=== PATIENT | female | born 1985 | race Caucasian/White ===

== ENCOUNTER 2023-04-13 22:42 | Emergency (ER) | payer OTHER, SELFPAY ==
[2023-04-13 22:42] VITALS: BP 147/102; PULSE 102; RESP 18; TEMP 36; O2SAT 100
--- NOTE | 2023-04-13 23:03 | ED.DENTAL ---
HPI - Dental/Oral General Chief complaint: Dental/Oral Stated complaint: tooth pain Time Seen by Provider: 04/13/23 23:00 Source: patient Mode of arrival: ambulatory Limitations: no limitations History of Present Illness HPI Narrative: Patient is a 37-year-old female with a significant past medical history that presents today without pain. Patient has a dental abscess on her bottom left molar. This been there now for quite some time. She states that she has been to a dentist but that his sponsor to see an oral surgeon to remove the tooth. She says she is unable find an oral surgeon. She states she was on antibiotics but ran out of them. She states it is very painful now. MD Complaint: tooth pain Teeth map: 1. abscess Onset (ago): week(s) Duration: intermittent Severity: moderate Severity scale (1-10): 5 Relieving factors: NSAIDs Exacerbating factors: chewing and cold Context: history of dental caries Associated symptoms: gum swelling Treatment prior to arrival: none Related Data Home Medications Medication Instructions Recorded Confirmed sertraline 100 mg tablet 100 mg PO DAILY 04/13/23 04/13/23 trazodone 100 mg tablet 100 mg PO DAILY 04/13/23 04/13/23 Allergies Allergy/AdvReac Type Severity Reaction Status Date / Time No Known Allergies Allergy Verified 04/13/23 22:44 Review of Systems Review of Systems: All systems reviewed & are unremarkable except as noted in HPI and below Constitutional: Constitutional: Reports no additional constitutional complaints Eyes: Eyes: Reports no additional eye complaints ENT: Reports as per HPI Cardiovascular: Cardiovascular: Reports no additional cardiovascular complaints Respiratory: Respiratory: Reports no additional respiratory complaints Gastrointestinal: Gastrointestinal: Reports no additional gastrointestinal complaints Genitourinary: Genitourinary: Reports no additional female genitourinary complaints Musculoskeletal: Musculoskeletal: Reports no additional musculoskeletal complaints Integumentary/Breasts: Skin/Breast: Reports system reviewed and no additional complaints, except as docu Neurologic: Reports system reviewed and no additional complaints, except as documented Psychiatric: Psychiatric: Reports no additional psychiatric complaints Endocrine: Endocrine: Reports no additional endocrine complaints Hematologic/Lymphatic: Hematologic/Lymphatic: Reports no additional hematologic/lymphatic complaints Allergic/Immunologic: Allergic/Immunologic: Reports no additional allergic/immunologic complaints Exam Const: General: healthy appearing Nutritional Appearance: well nourished Orientation/consciousness: patient oriented x3 HENMT: Head: normal to inspection Ears: external ears normal Face/Nose/Sinus: Normal external nose present Face and sinus: normal facial exam Teeth and gingiva: abnormal tooth and associated gingiva Eyes: Conjunctivae: conjunctivae normal Pupils: Equal, round and reactive pupils present EOM: EOMs intact bilaterally Neck: Neck: normal visual inspection Chest: Chest palpation & inspection: normal inspection of the chest Resp: Effort & Inspection: normal respiratory effort Cardio: Rate: regular rate Rhythm: regular rhythm GI: Auscultation: normal bowel sounds Back/Spine/Pelvis: Back: no CVA tenderness Skin: General skin exam: normal color Rashes: no rashes Wounds: no wounds Neuro: General: patient oriented x3 Cranial nerves: Yes Nystagmus not present Speech: normal speech Extrem: General: normal to inspection Psych: Mental Status: mental status grossly normal Affect: normal affect Course Vital Signs Vital signs: Vital Signs Temperature 96.8 F L 04/13/23 22:42 Pulse Rate 102 H 04/13/23 22:42 Respiratory Rate 18 04/13/23 22:42 Blood Pressure 147/102 H 04/13/23 22:42 Pulse Oximetry 100 04/13/23 22:42 Oxygen Delivery Room Air 04/13/23 22:42 Temperature 96.8 F L 04/13/23
[2023-04-13] MEDS: CLINDAMYCIN HCL 150 MG CAP 300 MG PO (23:07)
[2023-04-13] MEDS: IBUPROFEN 400 MG TABLET 800 MG PO (23:08)
--- NOTE | 2023-04-13 23:12 | PC.NURSE ---
DENTAL LIST PROVIDED
== END 2023-04-13 23:11 | disposition home or self-care (01) ==
PROVIDERS: Emergency Provider Family Medicine
DX: K02.9 Dental caries, unspecified (principal); K04.7 Periapical abscess without sinus
CPT/HCPCS: 99283; A9270

== ENCOUNTER 2025-01-03 07:38 | Emergency (ER) | payer OTHER, SELFPAY ==
--- NOTE | ~2025-01-03 | CT_ITS ---
EXAMINATION: CT chest abdomen pelvis wo con DATE: 01/03/2025 08:44 INDICATION: Right upper quadrant abdominal pain. TECHNIQUE: Computed tomography (CT) of the chest, abdomen, and pelvis was performed without intravenous contrast. Automated exposure control and iterative reconstruction technique were employed. The dose-length product was 774.39 mGy-cm. COMPARISON: None FINDINGS: CHEST CT: There is no pneumonia or pleural effusion. The heart size is normal. No pericardial effusion. There is mild thoracic spondylosis. ABDOMEN/PELVIS CT: The liver is normal. There are changes of cholecystectomy. The spleen, pancreas, and adrenal glands are normal. There are three stones in right kidney measuring up to 2 mm. There are two stones in left kidney measuring up to 2 mm. There are no dilated loops of bowel. The appendix is normal. There are no pathologically enlarged lymph nodes. There is an umbilical hernia containing fat. There is no free intraperitoneal fluid. There is mild lumbar spondylosis. IMPRESSION: 1. Small bilateral nonobstructing kidney stones. 2. Umbilical hernia containing fat. Reviewed, dictated and finalized at location E. TION CLASSIFICATION SPECIALIST
--- NOTE | ~2025-01-03 | CT_ITS ---
EXAMINATION: CTA chest PE protocol DATE: 01/03/2025 09:31 INDICATION: Right upper quadrant abdominal pain, worse with inspiration. TECHNIQUE: Computed tomography angiography (CTA) of the chest was performed with 100 mL Omnipaque-350 intravenous contrast timed to evaluate the pulmonary arteries. Coronal maximum intensity projection 3D-reconstructions were created by the technologist. Automated exposure control and iterative reconstruction technique were employed. The dose-length product was 320.06 mGy-cm. COMPARISON: Chest CT 01/03/2025 FINDINGS: There is no pneumonia or pleural effusion. The heart size is normal. No pericardial effusion. There is no pulmonary embolus. Thoracic aorta is normal. 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 There are changes of cholecystectomy. There is mild thoracic spondylosis. IMPRESSION: 1. No pulmonary embolus. Reviewed, dictated and finalized at location E. HANKER IMPRESSION: 1. No pulmonary embolus.
--- NOTE | 2025-01-03 07:39 | ED.ABDPAIN ---
HPI - Abdominal Pain General Chief Complaint: Abdominal Pain Stated Complaint: rt abd pain Source: patient Mode of arrival: ambulatory Limitations: no limitations History of Present Illness HPI narrative: Patient is a 39-year-old female with right posterior breast and right upper quadrant pain since this morning. She is having sharp pains. The pain does not radiate to the back but it does radiate to the right flank. No nausea vomiting or diarrhea. No fever or chills. It is very positional causing pain when she moves her body. She went to physical therapy yesterday. Normal bowel movements. MD elicited complaint: abdominal pain (Right upper) and flank pain (Right) Pertinent past history: other (GERD, hypothyroidism, depression) Onset (ago): hour(s) (3) Pain Consistency: constant Location: RUQ and R flank Severity: moderate Pain scale (0-10): 5 Quality: stabbing, fullness and sharp Radiation: R flank Migration to: no migration Exacerbating factors: movement Relieving factors: rest Context: confirms other (Patient having right upper quadrant and right lower lung body in the right breast pain on movement for the past 3 hours) Associated symptoms: denies other symptoms Treatments prior to arrival: other (None) Related Data Home Medications ?Medication ?Instructions ?Recorded ?Confirmed ?Last Taken ?Type sertraline 100 mg tablet 100 mg PO DAILY 04/13/23 04/13/23 Unknown History trazodone 100 mg tablet 100 mg PO DAILY 04/13/23 04/13/23 Unknown History famotidine 20 mg tablet 20 mg PO DAILY 01/03/25 01/03/25 Unknown History levothyroxine 100 mcg tablet 50 mcg PO DAILY 01/03/25 Unknown History Allergies Allergy/AdvReac Type Severity Reaction Status Date / Time lavender (Lavandula Allergy Intermediate Sneezing Verified 01/03/25 07:40 angustifolia) Review of Systems Review of Systems: All systems reviewed & are unremarkable except as noted in HPI and below Constitutional: Constitutional: Reports no additional constitutional complaints Eyes: Eyes: Reports no additional eye complaints ENT: Reports system reviewed and no additional complaints, except as documented Cardiovascular: Cardiovascular: Reports no additional cardiovascular complaints Respiratory: Respiratory: Reports no additional respiratory complaints Gastrointestinal: Gastrointestinal: Reports no additional gastrointestinal complaints Genitourinary: Genitourinary: Reports no additional female genitourinary complaints Musculoskeletal: Musculoskeletal: Reports no additional musculoskeletal complaints Integumentary/Breasts: Skin/Breast: Reports system reviewed and no additional complaints, except as docu Neurologic: Reports system reviewed and no additional complaints, except as documented Psychiatric: Psychiatric: Reports no additional psychiatric complaints Endocrine: Endocrine: Reports no additional endocrine complaints Hematologic/Lymphatic: Hematologic/Lymphatic: Reports no additional hematologic/lymphatic complaints Allergic/Immunologic: Allergic/Immunologic: Reports no additional allergic/immunologic complaints Exam Const: General: healthy appearing and alert Nutritional Appearance: well nourished Orientation/consciousness: patient oriented x3 HENMT: Head: normal to inspection Ears: external ears normal Face/Nose/Sinus: Normal external nose present Eyes: Conjunctivae: conjunctivae normal Pupils: Equal, round and reactive pupils present EOM: EOMs intact bilaterally Neck: Neck: normal visual inspection Chest: Chest palpation & inspection: normal inspection of the chest Resp: Effort & Inspection: normal respiratory effort, not labored, no retractions, not tachypneic and no use of accessory muscles Auscultation: clear to auscultation bilaterally, no crackles, no rales and no rhonchi Cardio: Rate: regular rate Rhythm: regular rhythm Heart sounds: Murmur heart sound present GI: Inspection: non-distended GI Palp: Yes Soft to palpation, Yes Tenderness to palpation present (GI) (Right upper quadrant), No Guarding due to palpation present (GI), No Rigid due to palpation, No Hernia present, No Palpable mass present and No Rebound tenderness present Auscultation: normal bowel sounds Other: Female nurse Melody present through entire abdomen examination : General: Yes bladder normal to palpation Back/Spine/Pelvis: Back: no CVA tenderness Skin: General skin exam: normal color Rashes: no rashes Wounds: no wounds Neuro: General: patient oriented x3, moves all extremities and no meningeal signs Extrem: General: normal to inspection and no pedal edema Psych: Mental Status: mental status grossly normal Affect: normal affect Attitude: cooperative Course Vital Signs Vital signs: Vital Signs Temperature 36.3 C L 01/03/25 07:44 Pulse Rate 87 01/03/25 07:44 Respiratory Rate 16 01/03/25 07:44 Blood Pressure 143/108 H 01/03/25 07:44 Pulse Oximetry 98 01/03/25 07:44 Oxygen Delivery Room Air 01/03/25 07:44 Temperature 36.3 C L 01/03/25 07:44 Pulse Rate 87 01/03/25 07:44 Respiratory Rate 16 01/03/25 07:44 Blood Pressure 143/108 H 01/03/25 07:44 Pulse Oximetry 98 01/03/25 07:44 Oxygen Delivery Room Air 01/03/25 07:44 MDM - Abdominal Pain MDM Narrative Medical decision making narrative: Patient is a 39-year-old female with right upper quadrant and right lower lung area behind the right breast pain since this morning about 3 hours. We will do a cardiopulmonary and GI workup. Reassurance given. A westley Bhatia head Lab Data Attestation: I reviewed the patient's lab results. 01/03/25 08:15 01/03/25 08:15 Labs: Lab Results 01/03/25 01/03/25 Range/Units 08:10 08:15 WBC 10.3 (4.8-10.8) K/mm3 RBC 5.09 (4.20-5.40) M/mm3 Hgb 14.2 (12.0-15.0) g/dL Hct 42.9 (35.0-49.0) % MCV 84.3 (78.0-102.0) fL MCH 27.9 (27.0-31.0) pg MCHC 33.1 (32-36) g/dL RDW 13.5 (11.6-14.4) % Plt Count 397 (150-420) K/mm3 MPV 8.9 L (9.2-11.8) fl Immature Gran % (Auto) 0.7 H (0.0-0.0) % Neut % (Auto) 70.6 H (50.0-70.0) % Lymph % (Auto) 19.2 (18.0-42.0) % Mcminn % (Auto) 5.7 (2.0-11.0) % Eos % (Auto) 3.4 (1.0-6.0) % Baso % (Auto) 0.4 (0.0-1.0) % Lymph # (Auto) 1.98 (1.10-4.50) K/mm3 Mcminn # (Auto) 0.59 (0.10-0.90) K/mm3 Eos # (Auto) 0.35 (0.02-0.50) K/mm3 Baso # (Auto) 0.04 (0.00-0.10) K/mm3 Abs Immat Gran (auto) 0.07 H (0.00-0.00) K/mm3 Absolute Neuts (auto) 7.28 H (1.70-7.20) K/mm3 Absolute Nucleated RBC 0.00 (0.00-0.00) K/mm3 Nucleated RBC % 0.0 (0-0.0) % D-Dimer 0.92 H (0.19-0.50) mg/L Sodium 143 (137-145) mmol/L Potassium 3.7 (3.4-5.0) mmol/L Chloride 107 (98-107) mmol/L Carbon Dioxide 27 (22-30) mmol/L Anion Gap 9 (4-12) mmol/L BUN 13 (7-17) mg/dL Creatinine 1.01 H (0.7-1.0) mg/dL Estim Creat Clear Calc Not Reportable Estimated GFR > 60 (59 - ) Glucose 113 H (65-110) mg/dL Calculated Osmolality 297 H (285-295) mOsm/kg Calcium 9.2 (8.4-10.2) mg/dL Total Bilirubin 1.3 (0.2-1.3) mg/dL AST 58 H (14-36) U/L ALT 40 H (6-35) U/L Alkaline Phosphatase 93 (38-126) U/L Troponin I < 0.012 (0.000-0.034) ng/mL Total Protein 7.8 (6.3-8.2) g/dL Albumin 4.4 (3.5-5.1) g/dL Lipase 147 (23-300) U/L Urine Color Light yellow (Yellow) Urine Appearance Sl cloudy A (Clear) Urine pH 6.0 (5.0-8.0) Ur Specific Sutter >= 1.030 H (1.010-1.020) Urine Protein Negative (Negative) Urine Glucose (UA) Negative (Negative) Urine Ketones Negative (Negative) Ur Blood (Man) Trace-intact H (Negative) Urine Nitrate Negative (Negative) Urine Bilirubin Negative (Negative) Urine Urobilinogen 1.0 (0.2-1.0) mg/dL Leukocyte Esterase Rfl 2+ H (Negative) YVONNE/UL Urine RBC 0-2 (0-2) /hpf Urine WBC 31-50 H (0-3) /hpf Ur Squamous Epith Cells Moderate H (Few) /hpf Urine Bacteria 2+ H (None) /hpf Urine Test Negative Imaging Data Attestation: I personally reviewed and interpreted this imaging study as follows: Radiologist's impression: ITS Impressions Chest/Abdomen/Pelvis CT 01/03/25 08:48 IMPRESSION: 1. Small bilateral nonobstructing kidney stones. 2. Umbilical hernia containing fat. Chest CTA 01/03/25 09:32 IMPRESSION: 1. No pulmonary embolus. ECG Data EKG #1: Attestation: I personally reviewed and interpreted this ECG as follows: ECG completion date: 01/03/25 ECG completion time: 08:02 normal rate, sinus rhythm, no ectopy, no ST changes, normal QRS, normal QT, NL axis and no acute changes Discharge Plan Discharge Clinical Impression: Musculoskeletal chest pain UTI (urinary tract infection) Qualifiers: Urinary tract infection type: site unspecified Hematuria presence: with hematuria Qualified Code(s): N39.0 - Urinary tract infection, site not specified Patient Disposition: Home Condition: Stable Instructions: Urinary Tract Infection in Women (DC), Musculoskeletal Pain (ED) Patient Language: Burmese Prescriptions: New sulfamethoxazole-trimethoprim [Bactrim DS] 800-160 mg tablet 1 tablet PO BID 7 Days Qty: 14 0RF No Action sertraline 100 mg tablet 100 mg PO DAILY trazodone 100 mg tablet 100 mg PO DAILY levothyroxine 100 mcg tablet 50 mcg PO DAILY famotidine 20 mg tablet 20 mg PO DAILY Follow-up/Referrals: UNKNOWN,DOCTOR [Non-Staff] Time of Disposition: 09:42
[2025-01-03 07:44] VITALS: BP 143/108; PULSE 87; RESP 16; TEMP 36.3; O2SAT 98
--- NOTE | 2025-01-03 07:53 | ECG_ITS ---
Test Date: 2025-01-03 08:00:02 Measurements Intervals Lillian Rate: 78 P: 0 SC: 125 QRS: 47 QRSD: 90 T: 24 QT: 358 QTc: 410 Interpretive Statements SINUS RHYTHM No previous ECG available for comparison Electronically Signed On 01-04-2025 12:11:01 STRAIGHT SLICING MACHINE OPERATOR by Jordon Russell M.D.
[2025-01-03] MEDS: KETOROLAC (*BKC) 60 MG/2 ML VIAL IM (08:05)
[2025-01-03 08:21] LABS: Hematocrit 42.9 % (35.0-49.0); Hemoglobin 14.2 g/dL (12.0-15.0); Immature Granulocyte Percent A 0.7 % (0.0-0.0); Lymphocytes Absolute Auto 1.98 K/mm3 (1.10-4.50); Mean Corpuscular HGB Conc 33.1 g/dL (32-36); Mean Corpuscular Hemoglobin 27.9 pg (27.0-31.0); Mean Corpuscular Volume 84.3 fL (78.0-102.0); Nucleated Red Blood Cells Absolute Auto 0.00 K/mm3 (0.00-0.00); Nucleated Red Blood Cells Perc 0.0 % (0-0.0); Platelet Count Result 397 K/mm3 (150-420); Red Blood Count 5.09 M/mm3 (4.20-5.40); White Blood Count 10.3 K/mm3 (4.8-10.8)
[2025-01-03 08:22] LABS: Add Urine Microscopic? YES; Appearance Urine Sl Cloudy (Clear); Glucose Urine UA Negative (Negative); Leukocyte Esterase Ur 2+ LEU/UL (Negative); Nitrate Urine Negative (Negative); Specific Grav Ur >= 1.030 (1.010-1.020)
[2025-01-03 08:27] LABS: Pregnancy On Board Control Positive
[2025-01-03 08:34] LABS: Alanine Aminotransferase 40 U/L (6-35); Albumin Level 4.4 g/dL (3.5-5.1); Alkaline Phosphatase 93 U/L (38-126); Anion Gap 9 mmol/L (4-12); Aspartate Amino Transferase 58 U/L (14-36); Blood Urea Nitrogen 13 mg/dL (7-17); Calcium 9.2 mg/dL (8.4-10.2); Carbon Dioxide 27 mmol/L (22-30); Chloride 107 mmol/L (98-107); Estimated Glomerular Filt Rate > 60; Glucose 113 mg/dL (65-110); Osmolality Calculated 297 mOsm/kg (285-295); Potassium 3.7 mmol/L (3.4-5.0); Sodium 143 mmol/L (137-145); Total Protein 7.8 g/dL (6.3-8.2)
[2025-01-03 08:35] LABS: Lipase 147 U/L (23-300)
[2025-01-03 08:46] LABS: Troponin I < 0.012 ng/mL (0.000-0.034)
[2025-01-03 09:49] VITALS: BP 128/94; PULSE 84; RESP 20; TEMP 36.2; O2SAT 100
[2025-01-05 13:14] LABS: Bilirubin,Total 0.2 mg/dL (0.2-1.3)
== END 2025-01-03 09:51 | disposition home or self-care (01) ==
PROVIDERS: Emergency Provider Emergency Medicine
DX: R07.89 Other chest pain (principal); N39.0 Urinary tract infection, site not specified; E03.9 Hypothyroidism, unspecified; Z79.899 Other long term (current) drug therapy
CPT/HCPCS: 36415; 71250; 71275; 74176; 80053; 81001; 81025; 83690; 84484; 85025; 85380; 93005; 96372; 99284; J1885; Q9967